=== PATIENT | female | born 1960 | race Caucasian/White ===

== ENCOUNTER 2016-03-23 02:24 | Observation (INO) | payer MEDICARE, OTHER ==
[~2016-03-23] VITALS: Ht 162.6 cm; Wt 79.0 kg
[~2016-03-23 02:24] MED LIST: ASPIRIN 81 MG CHEW TAB ONE
[2016-03-23] MEDS ORDERED: ASPIRIN 81 MG CHEW TAB ONE (02:30)
[2016-03-23] MEDS ORDERED: NITROGLYCERIN SL 0.4 MG TAB SL ONE (03:20)
[2016-03-23] MEDS ORDERED: SODIUM CHLORIDE 0.9% 1,000 ML ONE (03:21)
[2016-03-23] MEDS ORDERED: MORPHINE 2 MG/ML SYR ONE (03:21)
[2016-03-23] MEDS ORDERED: ENOXAPARIN 80 MG/0.8 ML SYR SUBQ ONE (03:23)
[2016-03-23] MEDS ORDERED: NITROGLYCERIN 2% OINT 1 INCH PKT TOPICAL ONE ×2 (03:42→04:58)
[2016-03-23 05:37] VITALS: BP_SYST 126; RESP 18; TEMP 98.3; Ht 162.6 cm; Wt 79.0 kg
[2016-03-23] MEDS ORDERED: SODIUM CHLORIDE 0.9% 1,000 ML IV SCH (05:55)
[2016-03-23] MEDS ORDERED: SALINE FLUSH 10 ML FLUSH PRN (05:55)
[2016-03-23] MEDS ORDERED: SODIUM CHLORIDE 0.9% FLUSH BAG 500 ML IV PRN (05:55)
[2016-03-23] MEDS ORDERED: ACETAMINOPHEN 325 MG TAB PO PRN (05:55)
[2016-03-23] MEDS ORDERED: NITROGLYCERIN 50 MG/250 ML IV PRN (05:55)
[2016-03-23] MEDS ORDERED: ONDANSETRON 4 MG VIAL IV PRN (05:55)
[2016-03-23] MEDS ORDERED: TEMAZEPAM 15 MG CAP PO PRN (05:55)
[2016-03-23] MEDS ORDERED: MORPHINE 2 MG/ML SYR IV PRN (05:55)
[2016-03-23] MEDS ORDERED: NITROGLYCERIN SL 0.4 MG TAB SL PRN (05:55)
[2016-03-23] MEDS ORDERED: ENOXAPARIN 80 MG/0.8 ML SYR SUBQ SCH (05:55)
[2016-03-23] MEDS ORDERED: DOCUSATE SOD 100 MG CAP PO PRN (05:55)
[2016-03-23] MEDS ORDERED: LORAZEPAM 0.5 MG TAB PO PRN (05:55)
[2016-03-23] MEDS: NITROGLYCERIN 2% OINT 1 INCH PKT TOPICAL SCH ×3 (06:00→18:35)
[2016-03-23] MEDS: ASPIRIN EC 81 MG TAB PO SCH (07:29)
[2016-03-23] MEDS ORDERED: PANTOPRAZOLE 40 MG VIAL IV STA (07:41)
[2016-03-23] MEDS: PANTOPRAZOLE 40 MG TAB PO SCH (07:44)
[2016-03-23] MEDS ORDERED: KETOROLAC 30 MG/ML VIAL IV ONE ×2 (07:45→08:25)
[2016-03-23 07:56] VITALS: BP_SYST 126; RESP 18; TEMP 98.1
[2016-03-23] MEDS: SALINE FLUSH 10 ML FLUSH SCH ×2 (08:27→20:54)
[2016-03-23] MEDS: METOPROLOL XL 100 MG TAB PO SCH ×2 (09:00→20:53)
[2016-03-23 11:56] VITALS: BP_SYST 122; RESP 20; TEMP 98.4
[2016-03-23] MEDS ORDERED: LEXISCAN 0.4 MG/5 ML SYRINGE IV ONE (12:38)
[2016-03-23] MEDS ORDERED: MISSING DOSE XX ONE (12:55)
[2016-03-23] MEDS: CANDESARTAN 16 MG PO SCH (13:05)
[2016-03-23 17:36] VITALS: RESP 16
[2016-03-23] MEDS ORDERED: TRAMADOL 50 MG TAB ONE (17:53)
[2016-03-23] MEDS: TRAMADOL 50 MG TAB PO PRN (18:03)
[2016-03-23] MEDS: LORATADINE 10 MG TAB PO SCH (18:04)
[2016-03-23] MEDS: ROPINIROLE 0.25 MG TAB PO SCH (18:04)
[2016-03-23] MEDS: MONTELUKAST 10 MG TAB PO SCH (18:04)
[2016-03-23] MEDS: ENOXAPARIN 80 MG/0.8 ML SYR SUBQ SCH (18:05)
[2016-03-23] MEDS: SITAGLIPTIN 25 MG TAB PO SCH (18:06)
[2016-03-23 19:27] VITALS: BP_SYST 117; RESP 18; TEMP 97.8
[2016-03-23] MEDS ORDERED: METFORMIN XR 500 MG TAB PO SCH (21:00)
[2016-03-23 23:38] VITALS: BP_SYST 120; RESP 18; TEMP 97.7
[2016-03-24] MEDS: NITROGLYCERIN 2% OINT 1 INCH PKT TOPICAL SCH ×4 (00:12→17:06)
[2016-03-24 04:05] VITALS: BP_SYST 128; RESP 16; TEMP 98.1
[2016-03-24] MEDS: PANTOPRAZOLE 40 MG TAB PO SCH (05:49)
[2016-03-24] MEDS: ENOXAPARIN 80 MG/0.8 ML SYR SUBQ SCH ×2 (05:49→17:05)
[2016-03-24] MEDS ORDERED: LEVOTHYROXINE 0.075 MG TAB PO SCH (07:00)
[2016-03-24] MEDS ORDERED: PANTOPRAZOLE 40 MG TAB PO SCH (07:00)
[2016-03-24 07:41] VITALS: BP_SYST 133; RESP 18; TEMP 98.2
[2016-03-24] MEDS: LORATADINE 10 MG TAB PO SCH (08:07)
[2016-03-24] MEDS: ASPIRIN EC 81 MG TAB PO SCH (08:07)
[2016-03-24] MEDS: MONTELUKAST 10 MG TAB PO SCH (08:07)
[2016-03-24] MEDS: ROPINIROLE 0.25 MG TAB PO SCH (08:07)
[2016-03-24] MEDS: METOPROLOL XL 100 MG TAB PO SCH (08:08)
[2016-03-24] MEDS: CANDESARTAN 16 MG PO SCH (08:08)
[2016-03-24] MEDS: SITAGLIPTIN 25 MG TAB PO SCH (08:09)
[2016-03-24] MEDS: SALINE FLUSH 10 ML FLUSH SCH (08:09)
[2016-03-24] MEDS ORDERED: TRAMADOL 50 MG TAB ONE ×2 (08:23→17:00)
[2016-03-24] MEDS: TRAMADOL 50 MG TAB PO PRN ×2 (08:25→17:03)
[2016-03-24 12:16] VITALS: BP_SYST 149; RESP 18; TEMP 98.2
[2016-03-24 16:06] VITALS: BP_SYST 121; RESP 18; TEMP 98.1
[2016-03-24] MEDS ORDERED: MISSING DOSE XX ONE (16:45)
[2016-03-24 19:19] VITALS: BP_SYST 121; RESP 18; TEMP 98.1
[2016-03-24 19:22] VITALS: BP_SYST 129; RESP 16; TEMP 97.8
== END 2016-03-24 18:36 | disposition home or self-care (01) ==
LOC: ER 02:24 → EMR 03:12 → ENPENDDIS 03:12 → ER 05:24 → 4THW 06:38
PROVIDERS: ADMIT Internal Medicine Cardiovascular Disease; ATTEND Internal Medicine Cardiovascular Disease
DX: R07.89 Other chest pain (principal); I25.10 Atherosclerotic heart disease of native coronary artery without angina pectoris; I10 Essential (primary) hypertension; E11.9 Type 2 diabetes mellitus without complications; E03.9 Hypothyroidism, unspecified; Z79.84 Long term (current) use of oral hypoglycemic drugs; Z79.82 Long term (current) use of aspirin; F41.9 Anxiety disorder, unspecified; E78.00 Pure hypercholesterolemia, unspecified; Z82.41 Family history of sudden cardiac death
CPT/HCPCS: 71010; 78452; 80053; 80061; 82550; 82947; 83735; 84484; 85025; 85610; 85730; 93005; 93017; 96361; 96372; 96374; 97799; 99284; A9500; G0378; J1885; J2785; 94799